=== PATIENT | male | born 1955 | race Caucasian/White ===

== ENCOUNTER 2017-01-24 18:06 | Emergency (ER) | payer BC ==
[2017-01-24 18:17] VITALS: BMI 27.8
[2017-01-24] MEDS ORDERED: TETRACAINE HCL ONE (18:27)
[2017-01-24] MEDS ORDERED: FUL-GLO STRIP ONE (18:30)
[2017-01-24] MEDS ORDERED: GENTAK OPHTH OINT EACHEYE ONE (18:50)
[2017-01-24] MEDS ORDERED: GENTAMICIN SULF (OPHTH) ONE (18:53)
[2017-01-24] MEDS ORDERED: GENTAK OPHTH OINT EACHEYE SCH (19:00)
[2017-01-24] MEDS ORDERED: TYLENOL #3 TAB (W/CODEINE) PO ONE ×2 (19:03→19:15)
--- NOTE | 2017-01-24 19:03 | DR.GENAD ---
HPI - PCP Primary Care Physician: ROSY - HPI Comment HPI Comment: HISTORY BELOW.. - Complaint/Symptoms Chief Complaint Doctors Comments: FB SENSATION RT EYE NOTED TODAY.SOME THING WENT IN THE EYE. TOOK CONTACT LENSE HE WAS WEARING AT THE TIME OUT. VISION IS BLURRING AND PAIN IN RT EYE. Chief Complaint:: PT C/O SOMETHING IN HIS RIGHT EYE. PT STATES HE GOT SOMETHING IN HIS EYE APPROX 2.5 HOURS AGO. PT STATES HE TOOK HIS CONTACT OUT AND HE CAN FEEL SOMETHING IN HIS EYE. - Nurses notes reviewed Nurses Notes Review: Yes - Source History Provided: Patient - Mode of Arrival Mode of Arrival: Ambulatory - Timing Onset of Chief Complaint: 01/24/17 Came on: Suddenly - Duration Duration: Constant Duration: Days - Severity Severity: Moderate PMH - PMH Past Medical History: Yes Past Medical History: Dyslipidemia, GERD, Hypertension Past Surgical History: Yes Surgical History: Lithotripsy - Family History History of Family Medical Conditions: Yes Family Medical History: Cancer - Social History Does patient currently use any type of tobacco product: No Have you used tobacco products in the last 12 months: No Type of Tobacco Use: None Does any household member use tobacco: No Alcohol Use: Occasionally Do you use any recreational Drugs:: No Lives With: Family Lives Where: Home - infectious screening In the last 2 months have you had wt loss of >10#?: NO Have you had fever, night sweats or hemotysis?: No Have you traveled outside the country in the last 6 months?: No Isolation: Standard ROS - Review of Systems Constitutional: No Symptoms Reported Eyes: Eye Pain (RT EYE), Blurred Vision (RT EYE), Tearing (RT EYE), Photophobia (RT EYE.) ENTM: No Symptoms Reported Respiratoy: No Symptoms Reported Cardiovascular: No Symptoms Reported Gastrointestinal/Abdominal: No Symptoms Reported Genitourinary: No Symptoms Reported Neurological: No Symptoms Reported Musculoskeletal: No Symptoms Reported Integumentary: No Symptoms Reported Endocrine: No Symptoms Reported All Other Systems: Reviewed and Negative PE - Vital Signs Vitals: Temperature 97.3 F Pulse Rate [Left Brachial] 61 Pulse Rate 71 Respiratory Rate 16 Blood Pressure [Left Arm] 156/80 Blood Pressure 138/84 O2 Sat by Pulse Oximetry 100 - General Limitations: No Limitations General Appearance: Alert - Head Head Exam: Normal Inspection - Eyes Eye exam: PERRL, Conjunctival Injection (RT EYE.), Other (RT EYE CORNEA ABRASION , NO VISIBLE FB NOTED.). negative: Periorbital Swelling, Periorbital Tenderness - ENT ENT Exam: Normal External Ear Exam External Ear Exam: Normal External Inspection TM/Canal Exam: Bilateral Normal Nose Exam: Normal Nose Exam Mouth Exam: Normal Inspection Throat Exam: Normal Inspection - Neck Neck Exam: Normal Inspection - Chest Chest Inspection: Symmetric Chest Wall Rise - Respiratory Respiratory Exam: Normal Lung Sounds Bilat Respiratory Exam: Bilateral Clear to Auscultation - Cardiovascular Cardiovascular Exam: Regular Rate, Normal Rhythm, Normal Heart Sounds - Abdominal Exam Abdominal Exam: Normal Bowel Sounds, Soft. negative: Tenderness - Extremities Extremities Exam: Normal Inspection - Back Back Exam: Normal Inspection - Neurologic Neurological Exam: Alert, Oriented X3 - Psychiatric Psychiatric Exam: Normal Affect, Normal Mood - Skin Skin Exam: Normal Color MDM - Additional Information Additional Information Obtained From: Family - Differential Diagnosis Differential Diagnosis: RIGHT EYE CORNEA ABRASION, CONJUNCTIVITIS, RT EYE FB. Course - Treatment Treatment: SEE ORDERS. - Education/Counseling Education/Counseling: Patient, Education Educated On: Treatment, Diagnosis, Needs for Follow Up - Diagnosis Discharge Problem: Injury of conjunctiva and corneal abrasion of right eye w/o FB Conjunctivitis, right eye Qualifiers: Conjunctivitis type: acute Acute conjunctivitis type: bacterial Qualified Code( s): H10.31 - Unspecified acute conjunctivitis, right eye - Discharge Plan Disposition: 01 HOME, SELF-CARE Condition: Stable Prescriptions: Acetaminophen with Codeine [Tylenol/Codeine #3 300-30 mg] 1 tab PO Q6H PRN #15 tab PRN Reason: Pain - Follow ups/Referrals Follow ups/Referrals: VANESSA GALLEGOS [Primary Care Provider] - 3 days - Instructions Instructions: Bacterial Conjunctivitis, [id number] Additional Instructions: RETURN TO ED IF WORSE. YOU ALSO HAVE CORNEA ABRASION.
[2017-01-24] MEDS ORDERED: GENTAK OPHTH OINT ONE (19:15)
[2017-01-24 20:05] VITALS: BP 156/80
== END 2017-01-24 19:25 | disposition home or self-care (01) ==
LOC: ER 18:15
DX: S05.00XA Injury of conjunctiva and corneal abrasion without foreign body, unspecified eye, initial encounter (principal); Y33.XXXA Other specified events, undetermined intent, initial encounter; Y92.9 Unspecified place or not applicable
CPT/HCPCS: 99282